=== PATIENT | male | born 1960 | race Caucasian/White ===

== ENCOUNTER → 2018-07-29 | Outpatient (CLI) | payer OTHER ==
[~2018-07-29] MED LIST: ASPIRIN E.C. 8181 MG PO; KAPSPARGO SPRIN50 MG PO
== END ==
LOC: COL.RAD 09:09
DX: Z02.71 Encounter for disability determination (principal); M51.36 Other intervertebral disc degeneration, lumbar region

== ENCOUNTER 2019-05-07 11:40 | Emergency (ER) | payer MEDICAID ==
[~2019-05-07] VITALS: Ht 175.3 cm; Wt 72.7 kg
[2019-05-07 11:44] VITALS: TEMP 97
[2019-05-07] MEDS ORDERED: TOPROL XL 25MG25 MG PO (12:20)
[2019-05-07] MEDS ORDERED: ASPIRIN 81M81 MG/TA2 PO (12:21)
[2019-05-07 12:32] LABS: BASO # 0.1 (0.0-0.2); BASO % 1.5 % (0.0-2.0); EOS # 0.1 (0.0-0.7); EOS % 2.2 % (0-4.0); GRAN # 3.5 (1.4-6.5); GRAN % 60.3 % (42.2-75.2); HEMATOCRIT 45.9 % (42.0-52.0); HEMOGLOBIN 15.6 g/dl (13.5-18.0); LYMPH # 1.5 (1.2-3.4); LYMPH % 25.3 % (20.0-51.0); MEAN CELL VOLUME 91 fl (80.0-100.0); MEAN CORPUSCULAR HEMOGLOBIN 31 pg (27.0-31.0); MEAN CORPUSCULAR HGB CONC 34 g/dl (33.0-37.0); MONO # 0.6 (0.1-0.6); MONO % 10.4 % (1.7-9.3); PLATELET COUNT 253 K/mm3 (130-400); RED BLOOD COUNT 5.05 M/mm3 (4.20-5.60); REDCELL DISTRIBUTION WIDTH-CV 12.6 % (11.5-14.5)
[2019-05-07 12:34] LABS: INR 1.1 (0.8-3.0); PROTHROMBIN TIME 12.7 SECONDS (9.7-12.8)
[2019-05-07 12:37] LABS: ALANINE AMINOTRANSFERASE 14 U/L (21-72); ALBUMIN 4.2 gm/dL (3.5-5.0); ALKALINE PHOSPHATASE 72 U/L (50-136); ANION GAP 8 mmol/L (7-16); AST,SGOT 18 U/L (15-37); BILIRUBIN,TOTAL 0.7 mg/dL (0.0-1.0); BLOOD UREA NITROGEN 13 mg/dL (9-20); CARBON DIOXIDE 27 mmol/L (22-30); CHLORIDE 106 mmol/L (98-107); CREATININE, serum 0.91 (0.66-1.25); GLUCOSE 108 mg/dL (74-106); LIPASE 58 U/L (23-300); POTASSIUM 3.8 mmol/L (3.4-5.0); SODIUM 141 mmol/L (137-145)
[2019-05-07 12:50] LABS: TROPONIN-I < 0.012 ng/mL (0.000-0.035)
[2019-05-07 13:58] VITALS: BP 136/94; PULSE 82
== END 2019-05-07 14:07 | disposition home or self-care (01) ==
LOC: COL.ER 11:40
PROVIDERS: Emergency Medicine
DX: I48.91 Unspecified atrial fibrillation (principal); I48.92 Unspecified atrial flutter; F17.210 Nicotine dependence, cigarettes, uncomplicated; Z79.82 Long term (current) use of aspirin
CPT/HCPCS: J7030

== ENCOUNTER 2021-02-27 01:34 | Observation (INO) | payer MEDICAID ==
[2021-02-27] VITALS (12 sets, daily range): BP systolic 79–107; BP diastolic 43–75; PULSE 47–88; TEMP 97.5–98.7
[~2021-02-27] VITALS: Ht 175.3 cm; Wt 79.2 kg
[~2021-02-27 01:34] MED LIST changes: +ASPIRIN 81M81 MG/TA2 PO; +TOPROL XL 25MG25 MG PO
[2021-02-27 02:26] LABS: BASO # 0.1 K/mm3 (0.0-0.2); BASO % 1.3 % (0.0-2.0); EOS # 0.1 K/mm3 (0.0-0.7); EOS % 1.4 % (0.0-4.0); GRAN # 6.8 K/mm3 (1.4-6.5); GRAN % 69.4 % (42.2-75.2); HEMATOCRIT 46.5 % (42.0-52.0); HEMOGLOBIN 15.7 g/dl (13.5-18.0); LYMPH # 1.6 K/mm3 (1.2-3.4); LYMPH % 16.4 % (20.0-51.0); MEAN CELL VOLUME 92 fl (80.0-100.0); MEAN CORPUSCULAR HEMOGLOBIN 31 pg (27-31); MEAN CORPUSCULAR HGB CONC 34 g/dl (33.0-37.0); MEAN PLATELET VOLUME 9.8 fl (7.4-10.4); MONO # 1.1 K/mm3 (0.1-0.6); MONO % 11.1 % (1.7-9.3); PLATELET COUNT 251 K/mm3 (130-400); RED BLOOD COUNT 5.04 M/mm3 (4.20-5.60)
[2021-02-27 02:28] LABS: INR 1.1 (0.8-3.0); PROTHROMBIN TIME 12.6 SECONDS (9.7-12.8)
[2021-02-27 02:44] LABS: ALANINE AMINOTRANSFERASE 11 U/L (0-55); ALBUMIN 4.1 gm/dL (3.4-4.8); ALKALINE PHOSPHATASE 83 U/L (40-150); ANION GAP 11 mmol/L (7-16); AST,SGOT 21 U/L (5-34); BILIRUBIN,TOTAL 0.6 mg/dL (0.2-1.2); BLOOD UREA NITROGEN 15 mg/dL (8-26); CALCIUM 8.8 mg/dL (8.4-10.2); CARBON DIOXIDE 22 mmol/L (23-31); CHLORIDE 109 mmol/L (98-107); CREATININE, serum 0.88 mg/dL (0.72-1.25); GLUCOSE 88 mg/dL (70-99); POTASSIUM 4.2 mmol/L (3.5-4.5); SODIUM 142 mmol/L (136-145); TOTAL PROTEIN 6.8 gm/dL (6.2-8.1)
[2021-02-27 02:45] LABS: ALCOHOL(ethanol),MEDICAL < 10 mg/dL (0-10)
[2021-02-27 02:51] LABS: TROPONIN-I < 0.010 ng/mL (0.00-0.033)
[2021-02-27 05:20] LABS: ANION GAP 9 mmol/L (7-16); BLOOD UREA NITROGEN 12 mg/dL (8-26); CALCIUM 8.4 mg/dL (8.4-10.2); CARBON DIOXIDE 22 mmol/L (23-31); CHLORIDE 113 mmol/L (98-107); CREATININE, serum 0.84 mg/dL (0.72-1.25); GLUCOSE 93 mg/dL (70-99); POTASSIUM 3.9 mmol/L (3.5-4.5); SODIUM 144 mmol/L (136-145)
[2021-02-27 05:42] LABS: TSH w REFLEX 4.331 uIU/mL (0.350-4.940)
--- NOTE | 2021-02-27 08:15 | NUR ---
Patient to room 357, ambulated independently with nursing staff to the room. A&Ox4. VSS. Telemetry on chest. IV CDI, fluids infusing. Denies pain and discomfort. In street clothes, does not want to change. Nurse oriented the patient to location, room and call light. No further needs expressed. Call light within reach
--- NOTE | 2021-02-27 17:40 | NUR ---
Patient had an uneventful day. A&Ox4. Independent in the room. Has had a visitor all day. Denies pain and discomfort. No reported palpitations/chest pain. IV CDI, fluids infusing. No further needs expressed. Call light within reach
--- NOTE | 2021-02-27 21:36 | NUR ---
Patient assessed aroud 1999. Alert and oriented, and able to make needs known. Denies having pain and discomfort. Peripheral IV to left forearm in place. Cardizem drip running at 5 mls/hr per orders. Patient's BP 79/64. Called to MARIA ALEJANDRA Ponce, updated on BP. Order to hold Lopressor, and to give NS bolus and start maintenace fluids. Started per orders. High fall risk precautions put in place. LS CTA. HRI-telemetry in place remains in A-fib at this time. Patient aware that he is NPO after midnight for possible WOOD/CV tomorrow if he does not convert to NS rhythm tonight. BSAx4. Abomen soft and non-tender. No edema. Patient voices no questions, needs, or concerns at this time. In bed with call light within reach. Bed alarm on.
[2021-02-28] VITALS (16 sets, daily range): BP systolic 93–127; BP diastolic 49–85; PULSE 50–95; TEMP 97.5–98
--- NOTE | 2021-02-28 06:06 | NUR ---
Patient has been resting in bed with call light within reach. Has been NPO since midnight for possible WOOD/CV today. Patient continues on cardizem drip per orders. BP remain soft, 90s/50s. Asymptomatic. IV fluids continue per orders. Remains in A-fib on telemetry, rate controlled, ranging from 50s-80s. Voices no questions, needs, or concerns at this time. Bed alarm on.
--- NOTE | 2021-02-28 06:30 | NUR ---
Report received from Naomi Ennis. PT in bed resting, will continue to monitor.
--- NOTE | 2021-02-28 08:44 | NUR ---
Assessment charted. Pt in bed resting, skin is mao anddry, heart is irregular, cardizem gtt and IVF going to LFA. Denies pain, NPO until cardiology, will continue to monitor.
[2021-02-28 09:52] LABS: HEMATOCRIT 40.3 % (42.0-52.0); MEAN CELL VOLUME 92 fl (80.0-100.0); MEAN CORPUSCULAR HEMOGLOBIN 31 pg (27-31); MEAN CORPUSCULAR HGB CONC 34 g/dl (33.0-37.0); MEAN PLATELET VOLUME 9.6 fl (7.4-10.4); PLATELET COUNT 198 K/mm3 (130-400)
[2021-02-28 10:00] LABS: HEMOGLOBIN 13.7 g/dl (13.5-18.0)
[2021-02-28 10:16] LABS: CALCIUM 7.7 mg/dL (8.4-10.2); CREATININE, serum 0.88 mg/dL (0.72-1.25); POTASSIUM 3.9 mmol/L (3.5-4.5)
[2021-02-28] MEDS ORDERED: ELIQUIS 5MG PO (14:22)
--- NOTE | 2021-02-28 16:00 | NUR ---
Pt arrived back from WOOD/CV around noon, taking PO well, started getting ready for discharge and was threatening to leave prior to discharge ordered b doctors but agreeable to stay until discharge could be completed. PT INT dc'd, tele dc'd. Pt discharge packet reviewed, answered all quesitons, pt aware of need for PCP. Pt left wtih all belongings, escorted out by medical staff, agreealbe to walk self home and refused ride provided by taxi service through the hospital, criteria met.
--- NOTE | 2021-02-28 16:56 | NUR ---
G[facility]set Stitcher met with patient to discuss discharge planning. Patient reports he lives in a camper here in [place] and does not live with anyone. Patient states [place] [address]. Patient does not have a primary care physician and states he has not seen a doctor in years. SW asked if he was interested in being set up at the [facility] or [facility] and patient states he doesn't care. SW asked patient about ADLS and patient states he "hasn't had a fucking bath in three months". SW asked patient if he has any family and he states he does but does not have much to do with them and tries to do everything he can on his own. Marta Iglesias (ph#[phone]) is listed as a contact. Patient states he will be leaving shortly and will walk to his camper. SW offered to secure a taxi ride for him and he states "I'm not a baby" then advised he will be walking. HIRO contacted [facility] and because patient has [employer], they will not see him as they only see the uninsured. HIRO then contacted [facility] and was advised that due to a high volume of no shows from hospital referrals, they would require patient to call them to schedule an appointment. Patient left before HIRO could advise him of this. HIRO made report to APS (intake #[id number]) and updated HARSHAL Rodrigues.
== END 2021-02-28 15:30 | disposition home or self-care (01) ==
LOC: COL.ER 01:34 → MEDICAL 04:06
PROVIDERS: Nurse Practitioner Family; Personal Emergency Response Attendant; Physician Assistant; ADMIT Internal Medicine Cardiovascular Disease
DX: I48.0 Paroxysmal atrial fibrillation (principal); E87.2 Acidosis; I10 Essential (primary) hypertension; F17.210 Nicotine dependence, cigarettes, uncomplicated; Z79.82 Long term (current) use of aspirin; Z79.899 Other long term (current) drug therapy
CPT/HCPCS: G0008; G0378; J1650; J2704; J7030; J7120

== ENCOUNTER 2021-03-05 01:50 | Emergency (ER) | payer MEDICAID ==
[~2021-03-05] VITALS: Ht 175.3 cm; Wt 68.2 kg
[~2021-03-05 01:50] MED LIST changes: +ELIQUIS 5MG PO
[2021-03-05 01:53] VITALS: TEMP 98.1
[2021-03-05 02:15] LABS: BASO # 0.1 K/mm3 (0.0-0.2); BASO % 0.7 % (0.0-2.0); EOS # 0.2 K/mm3 (0.0-0.7); EOS % 2.6 % (0.0-4.0); GRAN # 5.6 K/mm3 (1.4-6.5); GRAN % 65.7 % (42.2-75.2); HEMATOCRIT 42.8 % (42.0-52.0); HEMOGLOBIN 14.6 g/dl (13.5-18.0); LYMPH # 1.6 K/mm3 (1.2-3.4); LYMPH % 18.2 % (20.0-51.0); MEAN CELL VOLUME 91 fl (80.0-100.0); MEAN CORPUSCULAR HEMOGLOBIN 31 pg (27-31); MEAN CORPUSCULAR HGB CONC 34 g/dl (33.0-37.0); MEAN PLATELET VOLUME 9.7 fl (7.4-10.4); MONO # 1.1 K/mm3 (0.1-0.6); MONO % 12.6 % (1.7-9.3); PLATELET COUNT 231 K/mm3 (130-400); RED BLOOD COUNT 4.69 M/mm3 (4.20-5.60); REDCELL DISTRIBUTION WIDTH-CV 12.6 % (11.5-14.5)
[2021-03-05 02:31] LABS: ALANINE AMINOTRANSFERASE 17 U/L (0-55); ALBUMIN 3.6 gm/dL (3.4-4.8); ANION GAP 12 mmol/L (7-16); AST,SGOT 22 U/L (5-34); BILIRUBIN,TOTAL 0.6 mg/dL (0.2-1.2); BLOOD UREA NITROGEN 16 mg/dL (8-26); CALCIUM 8.4 mg/dL (8.4-10.2); CARBON DIOXIDE 19 mmol/L (23-31); CHLORIDE 108 mmol/L (98-107); CREATININE, serum 0.91 mg/dL (0.72-1.25); GLUCOSE 97 mg/dL (70-99); LIPASE 72 U/L (8-78); POTASSIUM 3.9 mmol/L (3.5-4.5); SODIUM 139 mmol/L (136-145); TOTAL PROTEIN 6.3 gm/dL (6.2-8.1)
[2021-03-05 02:37] LABS: ALKALINE PHOSPHATASE 76 U/L (40-150)
[2021-03-05 02:39] LABS: TROPONIN-I < 0.010 ng/mL (0.00-0.033)
[2021-03-05 03:30] VITALS: BP 154/88; PULSE 86
== END 2021-03-05 03:30 | disposition home or self-care (01) ==
LOC: COL.ER 01:50
PROVIDERS: Emergency Medicine
DX: R07.89 Other chest pain (principal); I48.91 Unspecified atrial fibrillation; Z79.01 Long term (current) use of anticoagulants

== ENCOUNTER 2021-04-30 13:48 | Inpatient (IN) | payer MEDICAID ==
[~2021-04-30] VITALS: Ht 175.3 cm; Wt 72.8 kg
[2021-04-30 14:13] LABS: BASO # 0.1 K/mm3 (0.0-0.2); BASO % 1.5 % (0.0-2.0); EOS # 0.2 K/mm3 (0.0-0.7); EOS % 2.6 % (0.0-4.0); GRAN # 3.2 K/mm3 (1.4-6.5); GRAN % 52.4 % (42.2-75.2); HEMATOCRIT 44.7 % (42.0-52.0); LYMPH # 1.8 K/mm3 (1.2-3.4); LYMPH % 29.6 % (20.0-51.0); MEAN CELL VOLUME 92 fl (80.0-100.0); MEAN CORPUSCULAR HEMOGLOBIN 31 pg (27-31); MEAN CORPUSCULAR HGB CONC 34 g/dl (33.0-37.0); MEAN PLATELET VOLUME 9.5 fl (7.4-10.4); MONO # 0.8 K/mm3 (0.1-0.6); MONO % 13.7 % (1.7-9.3); PLATELET COUNT 259 K/mm3 (130-400); RED BLOOD COUNT 4.86 M/mm3 (4.20-5.60); REDCELL DISTRIBUTION WIDTH-CV 12.8 % (11.5-14.5)
[2021-04-30 14:19] LABS: INR 1.1 (0.8-3.0); PROTHROMBIN TIME 12.3 SECONDS (9.7-12.8)
[2021-04-30 14:21] LABS: PARTIAL THROMBOPLASTIN TIME 27.2 SECONDS (26.0-37.0)
[2021-04-30 14:26] LABS: D-DIMER < 200.00 ng/mLDDu (200-230)
[2021-04-30 14:34] LABS: ALBUMIN 4.2 gm/dL (3.4-4.8); BILIRUBIN,TOTAL 0.7 mg/dL (0.2-1.2); CALCIUM 8.6 mg/dL (8.4-10.2); CREATININE, serum 1.04 mg/dL (0.72-1.25); TOTAL PROTEIN 6.6 gm/dL (6.2-8.1)
[2021-04-30 14:43] LABS: TROPONIN-I 0.052 ng/mL (0.00-0.033)
--- NOTE | 2021-04-30 17:37 | NUR ---
Patient arrived to the floor from ER. Patient has done well since arriving and is independent in his room. Patient remains on heparin gtt; rate was changed from 1400 units/hr to 875 units/hr. This RN has been unable to chart this in the EMAR, as pharmacy still has the medication pending. Rate change was done at approx. 1645.
[2021-04-30 19:50] VITALS: BP 116/56; PULSE 60; TEMP 98.1
--- NOTE | 2021-04-30 20:30 | NUR ---
Patient is resting in bed with friend at the bed side. Alert and oriented x 4, Denies chest pain, nausea or vomiting. Telemetry in place, NSR 50's. Hep drip at 900units/hr. Assessment completed, medications provided. No other needs at this time. Call light within reach.
[2021-04-30 23:51] VITALS: BP 121/69; PULSE 56; TEMP 97.4
[2021-05-01 04:27] LABS: CALCIUM 8.2 mg/dL (8.4-10.2); CHOLESTEROL RISK RATIO 2.8; CREATININE, serum 0.87 mg/dL (0.72-1.25)
[2021-05-01 04:29] LABS: HEMATOCRIT 40.5 % (42.0-52.0); HEMOGLOBIN 13.8 g/dl (13.5-18.0); MEAN CELL VOLUME 91 fl (80.0-100.0); MEAN CORPUSCULAR HEMOGLOBIN 31 pg (27-31); MEAN CORPUSCULAR HGB CONC 34 g/dl (33.0-37.0); MEAN PLATELET VOLUME 10.1 fl (7.4-10.4); PLATELET COUNT 241 K/mm3 (130-400); RED BLOOD COUNT 4.45 M/mm3 (4.20-5.60); REDCELL DISTRIBUTION WIDTH-CV 12.8 % (11.5-14.5)
--- NOTE | 2021-05-01 06:24 | NUR ---
Patient had an uneventful night. Continue with the hep drip, now at 950 units per hr. No chest pain reported. Report will be given to day RN.
[2021-05-01 07:46] VITALS: BP 114/72; PULSE 54; TEMP 97.8
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
[2021-05-01 10:43] VITALS: PULSE 68
[2021-05-01 11:33] VITALS: BP 100/80; PULSE 51; TEMP 97.6
[2021-05-01] MEDS ORDERED: LIPITOR 40MG TA40 MG PO (13:07)
[2021-05-01] MEDS ORDERED: ELIQUIS 5MG PO (13:07)
[2021-05-01] MEDS ORDERED: TOPROL XL 25MG25 MG PO (13:08)
--- NOTE | 2021-05-01 14:30 | NUR ---
Scheduled medications given. Shift assessment performed. VSS. Patient A&O. Patient deemed fit for discharge. IV DC'd catheter intact, catheter intact, no signs of phlebitis. Discharge education given. All questions answered. Patient informed that he needed to seek out a PCP. Names and numbers of accepting PCP's given. Importance of medication compliance discussed with patient. Patient verbalized an understanding of the teaching. Patient escorted from the building escorted by [facility] staff. Family transporting home.
== END 2021-05-01 14:35 | disposition home or self-care (01) | DRG 282 ==
LOC: COL.ER 13:48 → MEDICAL 14:59
PROVIDERS: Physician Assistant; ADMIT Internal Medicine
DX: I21.4 Non-ST elevation (NSTEMI) myocardial infarction (principal); I48.0 Paroxysmal atrial fibrillation; F17.210 Nicotine dependence, cigarettes, uncomplicated; J44.9 Chronic obstructive pulmonary disease, unspecified
CPT/HCPCS: 99222-AI; 99239; J1644; J7030